=== PATIENT | male | born 1960 | race Caucasian/White ===

== ENCOUNTER 2024-05-18 10:31 | Emergency (ER) | payer OTHER, SELFPAY ==
[2024-05-18] VITALS (10 sets, daily range): BP systolic 135–174; BP diastolic 73–99; PULSE 64–80; RESP 17–28; TEMP 36.7; O2SAT 88–94; BMI 27.5
--- NOTE | 2024-05-18 10:42 | DI.RAD.S_ITS ---
PROCEDURE: XR CHEST 1V INDICATIONS: chest pain TECHNIQUE: One view of the chest was acquired. COMPARISON: None. FINDINGS: Surgical changes and devices: None. Lungs and pleura: Lungs are clear. No pleural effusions or pneumothorax. Mediastinum: Mediastinal contours appear normal. Heart size is normal. Bones and chest wall: No suspicious bony lesions. Overlying soft tissues appear unremarkable. IMPRESSION: No acute cardiopulmonary abnormality is seen. Dictated by: Chau Ramos M.D. on 05/18/2024 at 11:26 Approved by: Chau Ramos M.D. on 05/18/2024 at 11:26
--- NOTE | 2024-05-18 10:54 | EKG_ITS ---
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
[2024-05-18 11:20] LABS: Add Manual Diff / Slide Review NO; Basophils Absolute Auto 0 /uL (0-100); Basophils Percent Auto 0.3 % (0-2); Eosinophils Absolute Auto 200 /uL (0-450); Eosinophils Percent Auto 1.7 % (2-4); Hematocrit 39.8 % (41-53); Hemoglobin 13.4 g/dL (13.5-17.5); Lymphocytes Absolute Auto 1500 /uL (1100-4500); Lymphocytes Percent Auto 15.4 % (25-40); Mean Corpuscular HGB Conc 33.5 % (30-36); Mean Corpuscular Hemoglobin 30.9 PG (26-34); Mean Corpuscular Volume 92.1 fL (80-100); Monocytes Absolute Auto 700 /uL (0-900); Monocytes Percent Auto 7.5 % (3-14); Neutrophils Absolute Auto 7300 /uL (1500-7000); Neutrophils Percent Auto 75.1 % (50-75); Platelet Count 221 X10^3/uL (150-400); Red Blood Cell Count 4.32 X10^6/uL (4.5-5.9); Red Cell Distribution Width 14.1 % (11.6-14.8); White Blood Cell Count 9.7 X10^3/uL (4.5-11.0)
[2024-05-18 11:41] LABS: Alanine Aminotransferase 24 IU/L (<50); Albumin 4.5 g/dL (3.5-5.0); Albumin Globulin Ratio 1.5 (1.0-2.8); Alkaline Phosphatase 83 U/L (38-126); Aspartate Aminotransferase 28 IU/L (17-59); Bilirubin Total 0.5 mg/dL (0.2-1.3); Blood Urea Nitrogen 30 mg/dL (9-20); Carbon Dioxide 23 mmol/L (22-32); Chloride 101 mmol/L (98-107); Creatine Kinase 62 U/L (55-170); Estimated Glomerular Filt Rate > 60 mL/min (>60); Glucose 81 mg/dL (80-110); HEMOLYSIS < 15 (0-50); Lipase 33 U/L (23-300); Potassium 4.6 mmol/L (3.4-5.1); Sodium 132 mmol/L (137-145); Total Protein 7.5 g/dL (6.3-8.2)
[2024-05-18 11:50] LABS: NT-proBNP (BNP-Adult 18+) 666 pg/mL (<125)
[2024-05-18 11:53] LABS: Troponin I < 0.012 ng/mL (0.01-0.034)
--- NOTE | 2024-05-18 12:22 | PC.NURSE ---
Patient is alert sitting up in bed and A&Ox3. He reports his normal O2 Saturation because of COPD is 88-92% on RA. I removed the O2 from him at this time. He reports he felt nauseous and vomited this morning and then I have a fucked up diaphragm so it was spasming. He denies any shortness of breath, nausea, abdominal/chest pain. States he feels normal now. He reports he does not normally vomit and has no clue why that happened.
--- NOTE | 2024-05-18 12:43 | ED.GENADULT ---
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 Patient presents with episode of vomiting while he was at [facility]. He goes there to receive his methadone. Patient states he felt a little hot and cold and then had some nausea and vomiting. He thinks he may have drank too much water as he needed to give a urine sample, he states he has some issues with neuropathy and may not have realized helpful his stomach was and thrown up. He states he felt a little bit off this morning prior to going to the clinic but otherwise felt fine. States he feels improved at this time. Denies any fevers or chills. No chest pain or shortness of breath. No abdominal back or flank pain. He has no longer feeling nauseated. States no issues with bowel movements, no issues with urination. He states when he threw up there was no black or blood or discoloration. No new swelling in extremities. He has had this happen intermittently a few times in the past. States his home medications include methadone, medications for CHF, COPD including inhalers, hypertension dyslipidemia diuretic. States he does take something for diabetes although technically does not have it. He states he does take blood thinners such as aspirin. Denies any prior surgeries. No known drug allergies. Vapes tobacco, no alcohol, no recreational drugs. Primary care is Dr. Kirk through [facility]. Related Data Allergies Allergy/AdvReac Type Severity Reaction Status Date / Time latex Allergy Verified 05/18/24 10:47 hydromorphone AdvReac Verified 05/18/24 10:47 varenicline AdvReac Verified 05/18/24 10:47 Review of Systems Review of Systems ROS Unobtainable: All systems reviewed & are unremarkable except as noted in HPI and below Patient History Medical History CHF (congestive heart failure) Social History Smoking Status: Former smoker Smoking Status: Former smoker Substance Use Type: former substance user Exam Narrative Exam Narrative: GENERAL: Alert and oriented x three, well-appearing male in mild distress. HEENT: Head normocephalic, atraumatic, EOMI, pupils reactive, face symmetric, moist mucous membranes NECK: Supple, full range of motion CARDIOVASCULAR: Regular rate and rhythm without murmurs, rubs or gallops. No JVD. No edema bilateral lower extremities. RESPIRATORY: Breath sounds equal bilaterally, no wheezes rales or rhonchi. ABDOMEN: Soft, nontender. Nondistended. Normoactive bowel sounds all 4 quadrants. No guarding or rebound, rigidity, no mass : No CVA tenderness EXTREMITIES: Normal range of motion, no clubbing or edema. Neurovascularly intact NEUROLOGICAL: Cranial nerves II through XII grossly intact. Moving all extremities SKIN: Warm, dry, no petechiae, no rashes or lesions. Initial Vital Signs Initial Vital Signs: Vital Signs Temperature 98.1 F 05/18/24 10:34 Pulse Rate 72 05/18/24 10:34 Respiratory Rate 24 05/18/24 10:34 Blood Pressure 157/86 H 05/18/24 10:34 Pulse Oximetry 88 L 05/18/24 10:34 Oxygen Delivery Method Room Air 05/18/24 10:34 Course Orders Ordered: ED Orders 05/18/24 10:42 XR chest 1V Stat EKG-12 Lead Stat 05/18/24 10:43 Complete Blood Count AUTO DIFF Stat Comprehensive Metabolic Panel Stat Lipase Stat NT-proBNP (BNP-Adult 18+) Stat Procalcitonin Stat Troponin & CK Cardiac Panel Stat 05/18/24 12:05 Urine Drug Screen, Rapid Stat Urine Microscopic Stat Vital Signs Vital signs: Vital Signs - 8 hr 05/18/24 10:34 05/18/24 10:35 05/18/24 10:36 Temperature 98.1 F Pulse Rate 72 75 72 Respiratory Rate 24 28 H Blood Pressure 157/86 H Pulse Oximetry 88 L 92 90 L Oxygen Delivery Method Room Air Oxygen Flow Rate 05/18/24 10:36 05/18/24 11:00 05/18/24 11:01 Temperature Pulse Rate 80 79 Respiratory Rate 25 H 19 Blood Pressure 157/86 H Pulse Oximetry 92 92 Oxygen Delivery Method Nasal Cannula Oxygen Flow Rate 2 05/18/24 11:01 05/18/24 11:30 05/18/24 11:30 Temperature Pulse Rate 64 Respiratory Rate 23 Blood Pressure 174/99 H 139/73 Pulse Oximetry 93 Oxygen Delivery Method Oxygen Flow Rate 05/18/24 12:00 05/18/24 12:00 05/18/24 12:30 Temperature Pulse Rate 72 74 Respiratory Rate 17 20 Blood Pressure 149/84 H Pulse Oximetry 94 93 Oxygen Delivery Method Oxygen Flow Rate 05/18/24 12:31 05/18/24 12:31 05/18/24 13:00 Temperature Pulse Rate 76 75 Respiratory Rate 17 Blood Pressure 144/75 H Pulse Oximetry 92 92 Oxygen Delivery Method Oxygen Flow Rate 05/18/24 13:00 Temperature Pulse Rate Respiratory Rate Blood Pressure 135/75 Pulse Oximetry Oxygen Delivery Method Oxygen Flow Rate Medical Decision Making Lab Data 05/18/24 10:43 05/18/24 10:43 Labs: Lab Results 05/18/24 05/18/24 Range/Units 10:43 12:05 WBC 9.7 (4.5-11.0) X10^3/uL RBC 4.32 L (4.5-5.9) X10^6/uL Hgb 13.4 L (13.5-17.5) g/dL Hct 39.8 L (41-53) % MCV 92.1 (80-100) fL MCH 30.9 (26-34) PG MCHC 33.5 (30-36) % RDW 14.1 (11.6-14.8) % Plt Count 221 (150-400) X10^3/uL Neut % (Auto) 75.1 H (50-75) % Lymph % (Auto) 15.4 L (25-40) % [place] % (Auto) 7.5 (3-14) % Eos % (Auto) 1.7 L (2-4) % Baso % (Auto) 0.3 (0-2) % Neut # (Auto) 7300 H (6661-0579) /uL Lymph # (Auto) 1500 (3125-3145) /uL [place] # (Auto) 700 (0-900) /uL Eos # (Auto) 200 (0-450) /uL Baso # (Auto) 0 (0-100) /uL Sodium 132 L (137-145) mmol/L Potassium 4.6 (3.4-5.1) mmol/L Chloride 101 (98-107) mmol/L Carbon Dioxide 23 (22-32) mmol/L BUN 30 H (9-20) mg/dL Creatinine 1.11 (0.66-1.25) mg/dL Estimated GFR > 60 (>60) mL/min BUN/Creatinine Ratio 27.0 H (6-22) Glucose 81 (80-110) mg/dL Calcium 9.0 (8.4-10.2) mg/dL Total Bilirubin 0.5 (0.2-1.3) mg/dL AST 28 (17-59) IU/L ALT 24 (<50) IU/L Alkaline Phosphatase 83 (38-126) U/L Total Creatine Kinase 62 (55-170) U/L Troponin I < 0.012 (0.01-0.034) ng/mL NT-Pro-B Natriuret Pep 666 H (<125) pg/mL Total Protein 7.5 (6.3-8.2) g/dL Albumin 4.5 (3.5-5.0) g/dL Globulin 3.0 (1.7-4.1) g/dL Albumin/Globulin Ratio 1.5 (1.0-2.8) Lipase 33 (23-300) U/L Procalcitonin 0.080 (<0.5) ng/mL Urine RBC 5-10/hpf H (0-5/HPF) Urine WBC 1-5/hpf (0-5/HPF) Ur Squamous Epith Cells 1-5 /hpf (0-5/HPF) Urine Bacteria None seen (None) Ur Culture Indicated? Cult not indicated Vol Urine Centrifuged 10ml (spun) U Opiates 300ng/mL cut Negative (Negative) Ur Oxycodone Screen Negative (Negative) Urine Methadone Screen Positive H (Negative) Ur Barbiturates Screen Negative (Negative) U Tricyclic Antidepress Negative (Negative) Ur Phencyclidine Scrn Negative (Negative) Ur Amphetamines Screen Negative (Negative) U Methamphetamines Scrn Negative (Negative) Ur MDMA Scrn (Ecstasy) Negative (Negative) U Benzodiazepines Scrn Negative (Negative) Urine Cocaine Screen Negative (Negative) U Marijuana (THC) Screen Negative (Negative) Urine pH Normal (Normal) Urine Specific [place] Normal (Normal) Ur Creatinine Normal (Normal) Urine Dip Bedside Urine Glucose 1000 mg/dl Bedside Urine Bilirubin - Negative Bedside Urine Ketone - Negative Urine Specific [place] 1.020 Bedside Urine Occult Blood +++ Bedside Urine pH 5.0 Bedside Urine Protein - Negative Bedside Urine Urobilinogen - Negative Bedside Urine Nitrite - Negative Bedside Urine Leukocytes - Negative Esterase Point of care testing: Urine Dip Bedside Urine Glucose 1000 mg/dl Bedside Urine Bilirubin - Negative Bedside Urine Ketone - Negative Urine Specific [place] 1.020 Bedside Urine Occult Blood +++ Bedside Urine pH 5.0 Bedside Urine Protein - Negative Bedside Urine Urobilinogen - Negative Bedside Urine Nitrite - Negative Bedside Urine Leukocytes - Negative Esterase Imaging Data Chest x-ray: Radiologist's Impression: [address] [address] XRay Report Signed Patient: Dylon Torre MR#: [id number] : 1960 Acct:[id number] Age/Sex: 63 / M Date of Service: 05/18/24 Loc: ED Accession Number: [id number] Procedure: XR chest 1V Ordering Provider: Jaleesa Adames D.O. PROCEDURE: XR CHEST 1V INDICATIONS: chest pain TECHNIQUE: One view of the chest was acquired. COMPARISON: None. FINDINGS: Surgical changes and devices: None. Lungs and pleura: Lungs are clear. No pleural effusions or pneumothorax. Mediastinum: Mediastinal contours appear normal. Heart size is normal. Bones and chest wall: No suspicious bony lesions. Overlying soft tissues appear unremarkable. IMPRESSION: No acute cardiopulmonary abnormality is seen. Dictated by: Chau Ramos M.D. on 05/18/2024 at 11:26 Approved by: Chau Ramos M.D. on 05/18/2024 at 11:26 ECG Data Attestation: I personally reviewed and interpreted this ECG as follows: Prior ECG tracings: not available for review Interpretation: Sinus rhythm rate of 63 PA 172 QRS of 96 QTC 433, no acute ST elevation depression. No priors available for review. MDM Narrative Medical decision making narrative: 63-year-old male on chronic methadone had nausea vomiting denies any other symptoms. States he feels improved. He thinks that he likely had vomiting as he was trying to provide a urine sample off the clinic and was drinking a lot of water. Labs show white count of 9.7 hemoglobin of 13.4, platelets of 221, neutrophil predominance 75%. Sodium 132 potassium 4.6 chloride of 101 CO2 of 23 BUN 30 creatinine of 1.11, glucose 81, LFTs are negative troponins less than 0.012 BNP 6 6 6, procalcitonin is 0.080 Point of care urine positive for blood, no nitrates leuks or protein, positive for glucose. Microscopy shows hematuria no signs of infection. Patient encouraged to follow up to have recheck of his urine for potential painless hematuria and persistent needs follow up with Urology. UDS positive for methadone other changes. EKG shows sinus rhythm no priors for comparison Chest x-ray is negative for acute change Discussed return precautions all questions answered. Patient is tolerating p.o. here in the department. Is on room air no longer on nasal cannula he states his normal O2 is 88-92% with no she already Discharge Plan Departure Patient Disposition: Home Clinical Impression: Vomiting Instructions: DI for Vomiting -- Adult Activity Restrictions/Additional Instructions: Please follow up as needed. I hope you continue to feel improved. Overall your labs are very appropriate today. You do have a small amount of blood in your urine, please follow up with primary care to make sure that this resolves. If you continue to have blood whether visualized or microscopic in your urine recheck you should follow up with Urology for cystoscopy. Continue your home medications as prescribed. Please return for recurrent symptoms, persistent vomiting new abdominal back or flank pain, fevers, black or bloody stools, lightheadedness or passing out or other new or concerning changes. Stand Alone Forms: Patient Portal/API
[2024-05-18 12:48] LABS: Ur Creatinine Normal (Normal); Ur Specific Gravity Normal (Normal); Urine pH Normal (Normal)
[2024-05-18 12:49] LABS: UR Morphine/Opiate cutoff 300 Negative (Negative); Urine Amphetamines Negative (Negative); Urine Barbiturates Negative (Negative); Urine Benzodiazepines Negative (Negative); Urine Cocaine Negative (Negative); Urine MDMA Negative (Negative); Urine Methamphetamines Negative (Negative); Urine Phencyclidine Negative (Negative); Urine Tetrahydrocannabinol Negative (Negative)
[2024-05-18 12:50] LABS: Urine Methadone Positive (Negative); Urine Oxycodone Negative (Negative); Urine Tricyclic Antidepressant Negative (Negative)
[2024-05-18 13:07] LABS: Bacteria Urine None Seen; RBC Urine 5-10/HPF (0-5/HPF); Squamous Epithelial Cell Urine 1-5 /HPF (0-5/HPF); Urine Volume 10mL (spun); WBC Urine 1-5/HPF (0-5/HPF)
[2024-05-18 13:08] LABS: Culture Indicated Urine Cult Not Indicated
== END 2024-05-18 13:46 | disposition home or self-care (01) ==
PROVIDERS: Emergency Provider Emergency Medicine
DX: R11.2 Nausea with vomiting, unspecified (principal); R07.9 Chest pain, unspecified; R79.89 Other specified abnormal findings of blood chemistry
CPT/HCPCS: 36415; 71045; 80053; 80305; 81003; 81015; 82550; 83690; 83880; 84145; 84484; 85025; 93005; 99284